=== PATIENT | female | born 1945 | race African-American/Black ===

== ENCOUNTER → 2016-05-14 | Outpatient (CLI) | payer MEDICARE, OTHER ==
[2016-05-14 12:16] LABS: Basophils # (auto) 0 uL; Basophils % (auto) 0.6 % (0.0-2.0); Eosinophils # (auto) 0.3 uL; Eosinophils % (auto) 8.1 % (0.0-7.0); Hematocrit 38.9 % (36.0-46.0); Hemoglobin 12.7 g/dL (12.2-16.2); Lymphocytes # (auto) 1.4 uL; Mean Corpuscular Hemoglobin 30.5 pg (28.0-32.0); Mean Corpuscular Hgb Conc. 32.7 g/dL (32.0-36.0); Mean Corpuscular Volume 93.3 fL (80.0-100.0); Mean Platelet Volume 10.1 fL (7.4-10.4); Monocytes # (auto) 0.3 uL; Monocytes % (auto) 7.8 % (0.0-12.0); Neutrophils # (auto) 1.8 uL; Neutrophils % (auto) 47.5 % (37.0-80.0); Platelet Count (auto) 246 10^3/uL (140-450); Red Cell Distribution Width 14.2 % (11.6-16.0); White Blood Cell 3.9 10^3/uL (4.4-10.8)
[2016-05-14 13:38] LABS: Albumin 4.5 g/dL (3.4-5.0); BUN/Creatinine Ratio 21.8; Bilirubin, Direct 0.2 mg/dL (0-0.2); Bilirubin, Total 0.6 mg/dL (0.2-1.0); Calcium 10.2 mg/dL (8.5-10.1); Potassium 4.4 mmol/L (3.5-5.1); Total Protein 8.4 g/dL (6.4-8.2)
== END | disposition home or self-care (01) ==
LOC: LAB 07:57
PROVIDERS: ATTEND Internal Medicine Cardiovascular Disease
DX: I10 Essential (primary) hypertension (principal); E78.00 Pure hypercholesterolemia, unspecified; K74.1 Hepatic sclerosis; E11.9 Type 2 diabetes mellitus without complications; E03.9 Hypothyroidism, unspecified; D64.9 Anemia, unspecified; E55.9 Vitamin D deficiency, unspecified
CPT/HCPCS: 36415; 80048; 80061; 80076; 82306; 83036; 84436; 84443; 85025

== ENCOUNTER → 2016-08-05 | Outpatient (CLI) | payer MEDICARE, OTHER ==
[2016-08-05 12:35] LABS: BUN/Creatinine Ratio 21.1; Calcium 9.9 mg/dL (8.5-10.1); Potassium 4.1 mmol/L (3.5-5.1)
== END | disposition home or self-care (01) ==
LOC: LAB 07:51
PROVIDERS: ATTEND Internal Medicine Cardiovascular Disease
DX: I10 Essential (primary) hypertension (principal); E11.9 Type 2 diabetes mellitus without complications; N39.0 Urinary tract infection, site not specified
CPT/HCPCS: 36415; 80048; 83036

== ENCOUNTER → 2016-11-07 | Outpatient (CLI) | payer MEDICARE, OTHER ==
[2016-11-07 12:39] LABS: BUN/Creatinine Ratio 21.4; Calcium 9.3 mg/dL (8.5-10.1)
== END | disposition home or self-care (01) ==
LOC: LAB 08:57
PROVIDERS: ATTEND Internal Medicine Cardiovascular Disease
DX: I10 Essential (primary) hypertension (principal); E11.9 Type 2 diabetes mellitus without complications
CPT/HCPCS: 36415; 80048; 83036